=== PATIENT | female | born 1945 ===

== ENCOUNTER 2018-03-24 09:54 | Day surgery (SDC) | payer OTHER ==
[2018-03-23 11:02] VITALS: BMI 21.2
--- NOTE | 2018-03-24 09:48 | CP.SDSHP ---
Same Day Surgery H & P - History Proposed Procedure: colonoscopy - Previous Medical/Surgical History Cardiac: Hypertension - Allergies Allergies: Allergies No Known Allergies Allergy (Verified 03/23/18 11:02) - Date & Time Date: 03/24/18 Time: 09:47 Short Stay Discharge - Short Stay Discharge Admitting Diagnosis/Reason for Visit: SCREENING / COLONIC POLYPS Disposition: HOME/ ROUTINE
[2018-03-24 10:09] VITALS: O2SAT 100
[2018-03-24] MEDS ORDERED: Midazolam 2 MG/2 ML VIAL ONE (10:22)
[2018-03-24] MEDS ORDERED: Propofol 10 mg/ml Inj (20 ML) ONE (10:23)
[2018-03-24 11:45] VITALS: TEMP 97.1
[2018-03-24 11:50] VITALS: BP 111/61; PULSE 66; RESP 14
== END 2018-03-24 12:05 | disposition home or self-care (01) ==
LOC: C.ENDO 09:54
PROVIDERS: ATTEND Colon & Rectal Surgery
DX: Z12.11 Encounter for screening for malignant neoplasm of colon (principal); Z86.010 Personal history of colon polyps; K57.10 Diverticulosis of small intestine without perforation or abscess without bleeding; K64.8 Other hemorrhoids
CPT/HCPCS: 45378; J2250; J2704